=== PATIENT | male | born 1960 | race Caucasian/White ===

== ENCOUNTER 2021-02-09 08:24 | Observation (INO) | payer OTHER ==
[2021-02-09] VITALS (30 sets, daily range): BP systolic 129–153; BP diastolic 75–97; PULSE 61–69; TEMP 97.6–98.2
[~2021-02-09] VITALS: Ht 182.9 cm; Wt 74.1 kg
[2021-02-09 08:59] LABS: COLLECTION METHOD CLEAN CATCH
[2021-02-09 09:04] LABS: PH 6 (5-8); SQUAMOUS EPITHELIAL None Seen /hpf; URINE APPEARANCE Clear; URINE BACTERIA None Seen /hpf; URINE BILIRUBIN Negative (NEGATIVE); URINE BLOOD Negative (NEGATIVE); URINE COLOR Straw; URINE GLUCOSE Negative (NEGATIVE); URINE KETONE Negative (NEGATIVE); URINE LEUKOCYTE ESTERASE Negative (NEGATIVE); URINE NITRATE Negative (NEGATIVE); URINE PROTEIN(semi-quant) Negative (NEGATIVE); URINE RBC 0-2 /hpf; URINE UROBILINOGEN Negative (NEGATIVE)
[2021-02-09 09:29] LABS: BASO # 0.1 (0.0-0.2); BASO % 1.1 % (0.0-2.0); EOS # 0.1 (0.0-0.7); EOS % 0.9 % (0-4.0); GRAN # 4.6 (1.4-6.5); GRAN % 70.6 % (42.2-75.2); HEMATOCRIT 48.7 % (42.0-52.0); HEMOGLOBIN 15.8 g/dl (13.5-18.0); LYMPH # 1.1 (1.2-3.4); LYMPH % 17.4 % (20.0-51.0); MEAN CELL VOLUME 94 fl (80.0-100.0); MEAN CORPUSCULAR HEMOGLOBIN 30 pg (27.0-31.0); MEAN CORPUSCULAR HGB CONC 32 g/dl (33.0-37.0); MEAN PLATELET VOLUME 9.8 fl (7.4-10.4); MONO # 0.6 (0.1-0.6); MONO % 9.8 % (1.7-9.3); PLATELET COUNT 234 K/mm3 (130-400); REDCELL DISTRIBUTION WIDTH-CV 12.5 % (11.5-14.5)
[2021-02-09 09:35] LABS: ALANINE AMINOTRANSFERASE 23 U/L (4-49); ALKALINE PHOSPHATASE 63 U/L (50-136); ANION GAP 8 mmol/L (7-16); AST,SGOT 23 U/L (15-37); BILIRUBIN,TOTAL 0.4 mg/dL (0.0-1.0); BLOOD UREA NITROGEN 11 mg/dL (9-20); CARBON DIOXIDE 31 mmol/L (22-30); CHLORIDE 102 mmol/L (98-107); CREATININE, serum 0.92 (0.66-1.25); GLUCOSE 71 mg/dL (74-106); LIPASE 147 U/L (23-300); POTASSIUM 4.2 mmol/L (3.4-5.0); SODIUM 141 mmol/L (137-145); TOTAL PROTEIN 7.2 gm/dL (6.4-8.2)
[2021-02-09 09:41] LABS: C-REACTIVE PROTEIN < 0.5 mg/dL (0.0-0.9)
[2021-02-09] MEDS ORDERED: BYSTOLIC5 MG PO (10:22)
[2021-02-09] MEDS ORDERED: REMERON SOLTAB30 MG PO (10:23)
[2021-02-09] MEDS ORDERED: ONE-A-DAY ESSE1 EACH PO (15:06)
[2021-02-09] MEDS ORDERED: B-121000 MCG PO (15:06)
--- NOTE | 2021-02-09 18:35 | NUR ---
Finished all necessary admission assessments. Patient is under 1:1 observation after admitting to suicidal ideation and stating that his plan is to "take his belt off and wrap it around his neck". He prays that if it his time to go, that God will just take him. 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 While talking about his suicidal ideation he stated, "Oh Father, I pray you just take me as I do not wish to go to [facility]". This patient does not plan to act on his ideations as it is against his latter day. The patient does have a flat affect and seems very disassociated. The patient did become tearful when discussing his depression and ideations stating, "I just want to be normal". The patient is very concerned about his diet and eating like a "normal person". Patient was anxious as the time got closer to 1900 and his food had not yet been ordered. Patient is also concerned about receiving his remeron that he takes for his insomnia, as he also desires to sleep like a "normal person"... The patient's dinner was ordered by this RN, and he was given some grahm crackers, peanut butter, and jello. This RN is currently staying in the room with the patient until a hospital director staff member can take on observation. The patient is currently content and reading the bible.
--- NOTE | 2021-02-09 19:15 | NUR ---
Received report from Ya. Patient awake in bed. Sitter was inside the room.
--- NOTE | 2021-02-09 20:30 | NUR ---
Patient asked what procedure he will have tomorrow. Explained to him what EGD is. Informed him on NPO by midnight. He asked for some snacks and the sitter gave him sandwich box. Prior to this he was able to eat crackers with peanut butter. His lungs are clear. He denies pain.
[2021-02-10] VITALS (69 sets, daily range): BP systolic 121–147; BP diastolic 61–90; PULSE 56–70; TEMP 98–99
--- NOTE | 2021-02-10 01:30 | NUR ---
Report received from LEYLA Jeffery. Patient resting in bed with eyes closed. No acute distress noted. Sitter in the room for suicide precaution. Call light within reach. Will continue to monitor.
--- NOTE | 2021-02-10 06:22 | NUR ---
NPO remained from midnight. Patient slept well throughout the night. Sitter in the room. Suicide precaution maintained. Call light within reach. Will continue to monitor.
--- NOTE | 2021-02-10 07:01 | NUR ---
PT SLEEPING IN ROOM, SITTER IN ROOM WELL, NO OTHER NEEDS
[2021-02-10 07:02] LABS: HEMATOCRIT 43.3 % (42.0-52.0); HEMOGLOBIN 14.3 g/dl (13.5-18.0); MEAN CELL VOLUME 92 fl (80.0-100.0); MEAN CORPUSCULAR HEMOGLOBIN 30 pg (27.0-31.0); MEAN CORPUSCULAR HGB CONC 33 g/dl (33.0-37.0); PLATELET COUNT 246 K/mm3 (130-400); REDCELL DISTRIBUTION WIDTH-CV 12.4 % (11.5-14.5)
[2021-02-10 07:09] LABS: CALCIUM 8.6 mg/dL (8.4-10.2); CREATININE, serum 0.86 (0.66-1.25); PHOSPHOROUS 3.4 mg/dL (2.5-4.5); POTASSIUM 4.6 mmol/L (3.4-5.0)
--- NOTE | 2021-02-10 07:24 | NUR ---
This nurse sitting in doorway, with direct line of site to patient. Pt starts speaking to self "It just seems like 12 hours is a long time to go without food or water" Patient reminded he is NPO for procedure which requires empty GI tract. Patient then states "my eyes are burning like there is too much salt from not drinking" Patient reminded that IV fluids are keeping him hydrated. Patient asked if he had asked for anything to eat or drink after his supper meal prior to being NPO, sandwhich box and beverages had been given to patient after evening meal. Support given.
--- NOTE | 2021-02-10 08:30 | NUR ---
PT UPSET ABOUT EGD AT 12. BS 67, PT NOT SYMPTOMATIC, LIZ PA NOTFIED AND ORAL GLUCOSE GEL WAS GIVEN WITH PERMISSION OF PA, PT AOX4, ASSESSMENT PERFORMED, CONSENT FOR EGD SIGNED AND PT HAD NO QUESTIONS THIS TIME. NO OTHER NEEDS.
--- NOTE | 2021-02-10 09:19 | NUR ---
Feeder Switchboard Operator attended clinical rounds with the team. The patient has a sitter and will have a [facility] screen once the patient is medically cleared. The patient has an EGD at noon this day.
--- NOTE | 2021-02-10 10:07 | NUR ---
Initial visit; Patient thanked Refrigeration Systems Installer for looking in on him and offering God's blessings. Patient shared he has been quite ill for some time and has contacted his Claim Rep to come hear his confession. Refrigeration Systems Installer let patient know she will help him contact further Claim Rep visits if so desired by him.
--- NOTE | 2021-02-10 14:20 | NUR ---
PT HAS RETURNED FROM PROCEDURE, HELPED PT ORDER LUNCH AND DINNER, ATTACHED TO POST OP VITALS, SITTER IN ROOM
--- NOTE | 2021-02-10 15:13 | NUR ---
Sole Assessor collaborated with the patient's nurse to send [facility] information for a screen. SW faxed referral. *Discharge disposition: Pending [facility]*
--- NOTE | 2021-02-10 17:28 | NUR ---
AMBULATED WITH PT IN HALLWAY, EDUCATED HIM ON DISCHARGE PLANNING, EDUCATED PT ON FINDINGS FROM EGD, EDUCATED ON NEW MEDICATIONS, PT REQUESTING SL REMERON, PHARMACY CALLED TO OBTAIN. FLUIDS INFUSING, BREAKFAST ORDERED FOR AM. PT PLEASANT, AOX4, CALL LIGHT WITHIN REACH, DENIES PAIN, NO OTHER NEEDS.
[2021-02-11] VITALS (17 sets, daily range): BP systolic 123–133; BP diastolic 71–76; PULSE 58–63; TEMP 97.8–98.6
--- NOTE | 2021-02-11 08:00 | NUR ---
Patient sitting up in bed, requesting some coffee. VSS. IV CDI, telemetry on chest. Denies pain and discomfort. No further needs expressed from the patient. Call light within reach
[2021-02-11] MEDS ORDERED: PROTONIX 40MG T40 MG PO (09:36)
[2021-02-11] MEDS ORDERED: PREDNISONE20 MG PO (09:37)
--- NOTE | 2021-02-11 12:30 | NUR ---
Discharge paperwork reviewed with the patient. Patient verbalized an understanding to follow doctors orders. IV removed, tip intact, gauze and coban applied. No further needs expressed from the patient. Patient taken by wheelchair to ER entrance by nursing staff. Personal belongings with the patient
[2021-02-11] MEDS ORDERED: ZEBETA 5MG5 MG PO (16:03)
== END 2021-02-11 12:37 | disposition home or self-care (01) ==
LOC: COL.ER 08:24 → MEDICAL 11:50
PROVIDERS: Family Medicine; Physician Assistant; ADMIT Internal Medicine
DX: K29.30 Chronic superficial gastritis without bleeding (principal); K29.80 Duodenitis without bleeding; K63.4 Enteroptosis; K50.90 Crohn's disease, unspecified, without complications; R55 Syncope and collapse; E16.2 Hypoglycemia, unspecified; R91.1 Solitary pulmonary nodule; G47.00 Insomnia, unspecified; I10 Essential (primary) hypertension; R45.851 Suicidal ideations; B94.8 Sequelae of other specified infectious and parasitic diseases; Z79.899 Other long term (current) drug therapy
CPT/HCPCS: G0378; J1650; J2405; J2704; J7030; J7120; J7512; Q9967

== ENCOUNTER 2021-02-11 13:17 | Emergency (ER) | payer OTHER ==
[~2021-02-11] VITALS: Ht 182.9 cm; Wt 74.1 kg
[~2021-02-11 13:17] MED LIST: B-121000 MCG PO; BYSTOLIC5 MG PO; ONE-A-DAY ESSE1 EACH PO; PREDNISONE20 MG PO; PROTONIX 40MG T40 MG PO; REMERON SOLTAB30 MG PO
[2021-02-11 14:58] LABS: BASO % 0.5 % (0.0-2.0); EOS % 0.3 % (0-4.0); GRAN # 6.6 (1.4-6.5); GRAN % 85.7 % (42.2-75.2); HEMATOCRIT 45.9 % (42.0-52.0); HEMOGLOBIN 14.5 g/dl (13.5-18.0); LYMPH # 0.7 (1.2-3.4); MEAN CELL VOLUME 94 fl (80.0-100.0); MEAN CORPUSCULAR HEMOGLOBIN 30 pg (27.0-31.0); MEAN CORPUSCULAR HGB CONC 32 g/dl (33.0-37.0); MEAN PLATELET VOLUME 9.9 fl (7.4-10.4); MONO # 0.3 (0.1-0.6); MONO % 4.2 % (1.7-9.3); PLATELET COUNT 265 K/mm3 (130-400); RED BLOOD COUNT 4.89 M/mm3 (4.20-5.60); REDCELL DISTRIBUTION WIDTH-CV 12.4 % (11.5-14.5)
[2021-02-11 15:03] LABS: COLLECTION METHOD CLEAN CATCH
[2021-02-11 15:22] LABS: ALANINE AMINOTRANSFERASE 22 U/L (4-49); ALKALINE PHOSPHATASE 61 U/L (50-136); ANION GAP 4 mmol/L (7-16); AST,SGOT 23 U/L (15-37); BILIRUBIN,TOTAL 0.3 mg/dL (0.0-1.0); BLOOD UREA NITROGEN 13 mg/dL (9-20); CALCIUM 9.4 mg/dL (8.4-10.2); CARBON DIOXIDE 28 mmol/L (22-30); CHLORIDE 104 mmol/L (98-107); CREATININE, serum 0.89 (0.66-1.25); GLUCOSE 116 mg/dL (74-106); POTASSIUM 4.6 mmol/L (3.4-5.0); SODIUM 137 mmol/L (137-145); TOTAL PROTEIN 7.3 gm/dL (6.4-8.2)
[2021-02-11 15:29] LABS: MUCOUS Present /lpf; PH 5 (5-8); SQUAMOUS EPITHELIAL None Seen /hpf; URINE APPEARANCE Clear; URINE BACTERIA None Seen /hpf; URINE BILIRUBIN Negative (NEGATIVE); URINE BLOOD Negative (NEGATIVE); URINE COLOR Straw; URINE GLUCOSE Negative (NEGATIVE); URINE KETONE Negative (NEGATIVE); URINE LEUKOCYTE ESTERASE Negative (NEGATIVE); URINE NITRATE Negative (NEGATIVE); URINE PROTEIN(semi-quant) Negative (NEGATIVE); URINE RBC 0-2 /hpf; URINE UROBILINOGEN Negative (NEGATIVE)
[2021-02-11 15:36] LABS: ACETAMINOPHEN < 10 ug/mL (10-30); ALCOHOL(ethanol),MEDICAL < 10 mg/dL; SALICYLATE < 1.0 mg/dL
[2021-02-11 15:39] LABS: TRICYCLIC ANTIDEPRESS URINE NEGATIVE
[2021-02-11] MEDS ORDERED: ZEBETA 5MG5 MG PO (16:03)
[2021-02-12 07:43] VITALS: TEMP 97.7
[2021-02-12 15:58] VITALS: BP 149/95; PULSE 64
== END 2021-02-12 16:32 ==
LOC: COL.ER 13:17
PROVIDERS: Physician Assistant
DX: F32.9 Major depressive disorder, single episode, unspecified (principal); R03.0 Elevated blood-pressure reading, without diagnosis of hypertension; R45.851 Suicidal ideations; Z20.822 Contact with and (suspected) exposure to COVID-19; Z86.16 Personal history of COVID-19; Z87.19 Personal history of other diseases of the digestive system; Z90.49 Acquired absence of other specified parts of digestive tract

== ENCOUNTER 2022-10-08 06:45 | Day surgery (SDC) | payer BC ==
[~2022-10-08] VITALS: Ht 182.9 cm; Wt 80.9 kg
[~2022-10-08 06:45] MED LIST changes: -B-121000 MCG PO; +B-121000 MCG SL; +ZEBETA 5MG5 MG PO
[2022-10-08 08:01] VITALS: BP 118/68; PULSE 84; TEMP 97.3
[2022-10-08] MEDS ORDERED: LEXAPRO20 MG PO (08:10)
[2022-10-08] MEDS ORDERED: AMBIEN 10MG10 MG PO (08:14)
[2022-10-08] MEDS ORDERED: IMODIUM A-D2 MG PO (08:15)
[2022-10-08] MEDS ORDERED: VITAMIND3 5000 PO (08:18)
[2022-10-08] MEDS ORDERED: VTAMINC250TA PO (08:19)
[2022-10-08] MEDS ORDERED: K2-4545 MCG PO (08:20)
[2022-10-08] MEDS ORDERED: MAGNESIUM200 MG PO (08:22)
[2022-10-08] MEDS ORDERED: BEET ROOT EXTRACT PO (08:22)
[2022-10-08] MEDS ORDERED: PHARMASSURE ZIN50 MG PO (08:23)
[2022-10-08] MEDS ORDERED: VITAMIN B-625 MG PO (08:24)
[2022-10-08] MEDS ORDERED: NORCO 325 MG-51 TAB PO (09:37)
[2022-10-08] MEDS ORDERED: MOTRIN 600600 MG/TAB PO (09:37)
[2022-10-08] MEDS ORDERED: COLACE 100100 MG/CAP PO (09:38)
[2022-10-08 11:45] VITALS: BP 124/50; PULSE 58; TEMP 97.2
--- NOTE | 2022-10-08 11:45 | NUR ---
1145 PATIENT RETURNS TO ROOM 2 VIA CART. PATIENT IS ALERT AND AWAKE AND HAS A NON PRODUCTIVE COUGH. PATIENT HAD PRN PAIN MEDICATIONS IN PACU, STATES THAT PAIN IS TOLERABLE NOW AT A 3/10. RESPIRATIONS EVEN AND UNLABORED, LUNGS CLEAR UPON AUSCULTATION. VITAL SIGNS OBTAINED. PATIENT IS CHEWING ON ICE CHIPS CURRENTLY, TOLERATING WELL. NO C/O NAUSEA. 1210 THIS NURSE REVIEWED DISCHARGE INSTRUCTIONS WITH PATIENT. PATIENT VERBALIZED UNDERSTANDING WITH NO QUESTIONS OR CONCERNS. 1215 DISCONTINUED IV FROM RIGHT HAND WITH NO DIFFICULTIES. 1218 PATIENT DRESSES SELF. 1230 PATIENT URINATES WITH NO DIFFICULTIES. 1240 PATIENT DISCHARGES FROM UNIT VIA WHEELCHAIR.
[2022-10-08 12:00] VITALS: BP 121/58; PULSE 72
[2022-10-08 12:15] VITALS: BP 114/58; PULSE 71
[2022-10-08 12:28] VITALS: BP 107/79; PULSE 60; TEMP 98.7
== END 2022-10-08 12:40 | disposition home or self-care (01) ==
LOC: SDCO 06:45
DX: K40.90 Unilateral inguinal hernia, without obstruction or gangrene, not specified as recurrent (principal)
CPT/HCPCS: C1781; J0690; J1100; J1170; J1885; J2405; J2704; J3010; J7120